=== PATIENT | female | born 1965 | race Caucasian/White ===

== ENCOUNTER 2016-09-14 08:05 | Day surgery (SDC) | payer BC, OTHER ==
[2016-09-14 08:17] LABS: BASO % 0.7 % (0-6); EOS % 3.3 % (0-6); GRAN % 55.2 % (47-80); HEMATOCRIT 41.9 % (35.0-47.0); HEMOGLOBIN 13.6 gm/dl (11.6-16.0); LYMPH % 31.4 % (16-45); MEAN CELL VOLUME 94.4 fl (81-97); MEAN CORPUSCULAR HEMOGLOBIN 30.6 pg (27-33); MEAN CORPUSCULAR HGB CONC 32.5 g/dl (32-36); MEAN PLATELET VOLUME 9.1 fl (7.4-10.4); MONO % 9.4 % (0-9); PLATELET COUNT 285 K/uL (130-400); RED BLOOD COUNT 4.44 M/uL (3.80-5.40); WHITE BLOOD COUNT W/O DIFF 6.1 K/uL (4.2-12.2)
[2016-09-14] MEDS ORDERED: ACETAMINOPHEN 100 ML IV ONE (12:24)
[2016-09-14] MEDS ORDERED: CEFAZOLIN 1 Gram 50 ML IVPB ONE (12:24)
[2016-09-14] MEDS ORDERED: FAMOTIDINE 20MG TABLET PO ONE (12:24)
[2016-09-14] MEDS ORDERED: METOCLOPRAMIDE 10 MG TABLET PO ONE (12:24)
[2016-09-14] MEDS ORDERED: MECLIZINE 25 MG TABLET PO ONE (12:24)
[2016-09-14] MEDS ORDERED: KETOROLAC 30 MG/ML VIAL IVP ONE ×2 (14:13→15:49)
[2016-09-14] MEDS ORDERED: PROMETHAZINE HCL 25 MG/ML VIAL IVP ONE (14:13)
[2016-09-14] MEDS ORDERED: HYDROMORPHONE HCL 2 MG/ML VIAL IV ONE (14:13)
[2016-09-14] MEDS ORDERED: HYDROCODONE/APAP 5/325MG TABLET PO ONE (14:13)
[2016-09-14] MEDS ORDERED: BUPIVACAINE 0.25% W/EPI MPF 30ML VIAL IVP ONE (14:13)
[2016-09-14] MEDS ORDERED: GLYCOPYRROLATE 0.2 MG/ML ML IV ONE (15:49)
[2016-09-14] MEDS ORDERED: ROCURONIUM BROMIDE 50MG/5ML VIAL IV ONE (15:49)
[2016-09-14] MEDS ORDERED: DEXAMETHASONE 4 MG/ML 1ML VIAL IVP ONE (15:49)
[2016-09-14] MEDS ORDERED: LIDOCAINE 2% MDV (20MG/ML) 20ML VIAL IV ONE (15:49)
[2016-09-14] MEDS ORDERED: SEVOFLURANE 250 ML INH ONE (15:49)
[2016-09-14] MEDS ORDERED: ONDANSETRON HCL IV 4 MG/2 ML VIAL IVP ONE (15:49)
[2016-09-14] MEDS ORDERED: PROPOFOL 10 MG/ML VIAL IV ONE (15:49)
[2016-09-14] MEDS ORDERED: MIDAZOLAM HCL 2MG/2ML VIAL IV ONE (15:49)
[2016-09-14] MEDS ORDERED: NEOSTIGMINE 1 MG/1 ML,10ML VIAL IV ONE (15:49)
[2016-09-14] MEDS ORDERED: SUFENTANIL CITRATE 50 MCG/ML AMPUL IV ONE (15:49)
--- NOTE | 2016-09-14 16:23 | Operative Note ---
OPERATIVE REPORT DATE OF PROCEDURE: 09/14/2016. SURGEON: Memo Holm D.O. REFERRING PHYSICIAN: Noemi Watters M.D. PREOPERATIVE DIAGNOSIS: 1. REDUCIBLE VENTRAL HERNIA. 2. REDUCIBLE LEFT INGUINAL HERNIA. POSTOPERATIVE DIAGNOSIS: 1. REDUCIBLE VENTRAL HERNIA. 2. REDUCIBLE LEFT INGUINAL HERNIA. 3. REDUCIBLE RIGHT INGUINAL HERNIA. INDICATIONS: The patient is a 51-year-old female who underwent a laparoscopic cholecystectomy. She was noted to have an umbilical hernia at that time, and this was repaired with a 6.4 cm Ventralight mesh. About a year later she developed a bulge superior to this. Imaging studies did reveal a supraumbilical hernia containing bowel. On examination this was clearly reducible. At the cholecystectomy operation, upon her laparoscopy, it was noted she had a reducible right inguinal hernia. We did discuss repair of both of these at the same time. I felt a laparoscopic approach would be best for her ventral hernia due to better mesh overlap. Therefore consent was signed and questions were answered. DESCRIPTION OF PROCEDURE: She was taken to the operating room and was placed in the supine position. General anesthesia was administered per the Department of Anesthesia. The patient's abdomen and groin region were prepped and draped in the usual fashion. At this time an orogastric tube was inserted. An adequate time out was performed. Her identity and side were confirmed. She did receive a preoperative antibiotic. At this time the left upper quadrant region was was anesthetized with a total of 3.0 mL of 0.25% Sensorcaine with epinephrine. A 1.0-cm oblique left upper quadrant incision was made. Through this a Visiport was placed. All abdominal layers were traversed under direct visualization. The peritoneal cavity was entered. Adequate pneumoperitoneum was established. I did switch to a 10-mm angled lens. The hernia was noted just above the previously placed mesh. This was at the base of the falciform ligament. There was no bowel adherent. There were no adhesions at all. I did inspect her groin. The left inguinal hernia as noted before was identified. The patient also had a direct right inguinal hernia. 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 He did confirm this. The calciform ligament was then taken down from the superior aspect of the hernia all the way to the diaphragm. This was done with cautery. Hemostasis was noted. There was some preperitoneal fat up in the hernia which was taken down with cautery as well. The hernia itself measured about 2.0 x 2.2 cm. At this time, a 15 x 20 Proceed mesh was obtained. Double-scroll technique was used for preplaced cardinal stitches which were placed on the mesh. Each side was scrolled upon itself and held in place with a stitch. This was placed into intraperitoneal position. This was mapped out. The cephalad and caudad stitches were grasped transvaginally and held in place with a hemostat. We had excellent mesh overlap of about 6.0 to 7.0 cm on all sides. At this time each side was unscrolled and held in place with an additional transvaginal stitch. At this time a secure strap tacking device was used to tack the mesh in place in a 360-degree fashion. Inner crown was also placed. The transvaginal stitches were loosely tied down and trimmed. Skin dimpling was released. The scope was turned around. There was no bleeding noted. There was no bowel injury noted. Pneumoperitoneum was released. All ports were removed. The fascia was closed with 0 Vicryl in a figure of eight fashion. The skin and all three ports were closed with 4-0 Vicryl. Attention was now turned to the patient's right groin. An oblique region was anesthetized with a total of 4.0 mL of 0.25% Sensorcaine with epinephrine. A 3.0 cm oblique incision was made. This was carried down through Adolfo's layer to the aponeurosis external oblique. This was noted to be very attenuated and thinned out. A carola was made and this was enlarged to the superficial inguinal ring with Metzenbaum scissors. Superior and inferior flaps were developed. A Roslyn was placed on the round ligament. This was dissected free from the underlying transversalis fascia and direct hernia. At this time the proximal and distal aspects of the round ligament were clamped with a Ozzie clamp, and the round ligament was removed. Each end was then ligated with #1 Vicryl. At this time the floor was imbricated with 2-0 Vicryl. A right-sided ProGrip mesh was obtained. This was placed overlying the floor of the inguinal canal with excellent overlap of the pubic tubercle. This was sutured in place at the level of the pubic tubercle shelving portion of the inguinal ligament and internal oblique aponeurosis. The lateral triangle was protected with the lateral aspect of the mesh. At this time the aponeurosis was closed over the mesh with 2-0 Vicryl. Adolfo's layer was closed with 3-0 Vicryl, and the skin was closed with 4-0 Vicryl. Attention was now turned to the left side where an identical procedure was done. The patient had an indirect hernia with an accompanying cord lipoma. This was repaired in the same fashion. The patient tolerated the procedure well. FINDINGS AT THE TIME OF SURGERY: A 2.2 cm ventral hernia; right inguinal hernia , direct; left inguinal hernia, indirect with accompanying cord lipoma. Memo Holm D.O. Date Time JOB NUMBER: [id number] cc: Merry [place]
== END 2016-09-14 13:20 | disposition home or self-care (01) ==
LOC: SUR 08:05
PROVIDERS: ATTEND Surgery
DX: K43.9 Ventral hernia without obstruction or gangrene (principal); K40.20 Bilateral inguinal hernia, without obstruction or gangrene, not specified as recurrent
CPT/HCPCS: 49505; 49652; 00832; 85025; J1885; J2405; J0690; J1170; J2550; J2710